=== PATIENT | male | born 1945 ===

== ENCOUNTER 2019-11-02 08:28 | Day surgery (SDC) | payer MEDICARE, OTHER ==
[~2019-11-02] VITALS: Ht 172.7 cm; Wt 132.4 kg
[~2019-11-02 08:28] MED LIST: ALBU90OI INH; AMLO5 PO; ASPI81CH; ASPI81CH PO; ASPI81EC PO; Adalat Cc30 MG PO; Adalat/Procardi20 MG; Aspirin EC81 MG PO; BORON PO; CHOL10002 PO; DAILY MULTIPLE1 EAC1 PO; FISH1000 PO; Flonase 0.05% N16 GM; Glucosamine Ch1 EAC4 PO; LISI5 PO; LISINOPRIL 10MG PO; NAPR500 PO; NIFE30ER PO; NIFEDIAC CC PO; Omega 3 1,0001 EACH PO; Prinivil10 MG PO; SIMV40 PO; TAMS.4ER PO; TELM20 PO; VITAMIN B-125000 MCG SL; VITAMIN C PO; VITAMIN C500 MG PO; VITAMIN D32000 UNI3 PO; Zocor40 MG PO
--- NOTE | 2019-11-02 09:44 | NUR ---
11/02/19 0944 Nell Abarca 3MG VERSED GIVEN [address] MCGUIRE.
== END 2019-11-02 10:55 | disposition home or self-care (01) ==
LOC: ORSCSDS 08:28
PROVIDERS: Orthopaedic Surgery
PROC: 01N54ZZ Release Median Nerve, Percutaneous Endoscopic Approach (ICD-10-PCS; principal; 2019-11-02 09:45)
DX: G56.01 Carpal tunnel syndrome, right upper limb (principal); I10 Essential (primary) hypertension; J45.909 Unspecified asthma, uncomplicated; G47.33 Obstructive sleep apnea (adult) (pediatric); E66.01 Morbid (severe) obesity due to excess calories; Z68.41 Body mass index [BMI] 40.0-44.9, adult; Z79.82 Long term (current) use of aspirin; Z79.899 Other long term (current) drug therapy
CPT/HCPCS: 82947; J0690; J2250; J2405; J7120

== ENCOUNTER → 2020-07-16 | Outpatient (CLI) | payer MEDICARE, OTHER | END | disposition home or self-care (01) | LOC: LAB EV 11:37 → LAB SHORT 11:37 → PLD 11:37 | DX: L57.0 Actinic keratosis (principal); D48.5 Neoplasm of uncertain behavior of skin | CPT/HCPCS: 88305 ==

== ENCOUNTER → 2021-01-02 | Outpatient (CLI) | payer MEDICARE ==
[2021-01-02 10:57] LABS: Source, Urine Clean Catch
[2021-01-02 12:05] LABS: Appearance, Urine Clear (Clear); Bilirubin, Urine Neg (Neg); Blood, Urine Neg (Neg); Color, Urine Yellow (P-Yellow); Glucose Qualitative, Urine Neg (Neg); Ketones, Urine Neg (Neg); Leukocyte Esterase, Urine Neg (Neg); Nitrite, Urine Neg (Neg); Protein, Urine 2+ (Neg); Urobilinogen, Urine NORM (Normal)
[2021-01-02 12:28] LABS: Bacteria Rare /hpf; Mucus Light (0-Heavy); Red Blood Cells, Urine 0-2 /hpf (0-2); Squamous Epithelial Cells Rare /hpf (Few); White Blood Cells, Urine 0-2 /hpf (0-5)
== END | disposition home or self-care (01) ==
LOC: LAB SHORT 10:56
PROVIDERS: Internal Medicine
DX: N39.0 Urinary tract infection, site not specified (principal)
CPT/HCPCS: 81001